=== PATIENT | male | born 1995 | race Caucasian/White ===

== ENCOUNTER 2016-12-14 03:30 | Emergency (ER) | payer OTHER ==
--- NOTE | 2016-12-14 03:36 | EDPHY ---
H & P HPI/ROS: HPI CHIEF COMPLAINT: Alcohol Intoxication , fall, head laceration HISTORY OF PRESENT ILLNESS: This patient 21-year-old male otherwise healthy no significant medical history presents emergency room with acute alcohol intoxication, and states that he fell recently. He presents with a rather large 7cm x 2cm left-sided forehead laceration. He denies headache. However he is highly intoxicated alcohol. Smells of alcohol. Unclear exactly how much she drank tonight. Patient does admit to drinking a lot of alcohol this evening. He denies any pain anywhere. It is noted he has abrasions on both of his palmar surfaces of his hands. Dirt on his pants. Abrasion on his left arm and a rather large head laceration. Patient reports tetanus shot is up-to-date. Past Medical History: No significant medical history Past Surgical History: Denies surgical history Social History: [employer] student, denies illicit drugs or daily tobacco use. Went drinking tonight. Family History: Noncontributory ROS REVIEW OF SYSTEMS: A comprehensive 10 point review of systems is otherwise negative aside from elements mentioned in the history of present illness. Exam Constitutional Intoxicated, triage nursing summary reviewed, vital signs reviewed, Sleepy, smells of alcohol Eyes normal conjunctivae and sclera, horizontal beating nystagmus consistent acute alcohol intoxication, otherwise pupils equal and react to light HENT head/neck: No midline cervical spine pain or step-offs, facial exam midface stable, no crepitus, over the left side of the forehead and left eyebrow region there is a rather large 7 cm gaping laceration, moist mucus membranes, no epistaxis, neck supple/ no meningismus, no raccoon eyes. Respiratory clear to auscultation bilaterally, normal breath sounds, no respiratory distress, no wheezing. Cardiovascular rate normal, regular rhythm, no murmur, no edema, distal pulses normal. Gastrointestinal soft, non-tender, no rebound, no guarding, normal bowel sounds, no distension, no pulsatile mass. Genitourinary no CVA tenderness. Musculoskeletal no midline vertebral tenderness, full range of motion, no calf swelling, no tenderness of extremities, no meningismus, good pulses, neurovascularly intact. Skin multiple abrasions to the palmar surface of both hands, abrasion left forearm. Neurologic sleepy, intoxicated with alcohol,, alert and oriented x 3, AAOx3, moves all 4 extremities equally, motor intact, sensory intact, CN II-XII intact , , normal vision, normal speech. Psychiatric normal mood/affect. Heme/Lymph/Immune no lymphadenopathy. Differential Diagnosis: Includes but is not limited to in a particular order acute alcohol intoxication, alcohol abuse, dehydration, electrolyte abnormality , nausea vomiting from acute alcohol intoxication current, closed head injury, intracranial bleed, skull fracture, facial trauma, facial laceration Medical Decision Making: Plan for this patient CT scan head and neck for trauma in the setting of acute alcohol intoxication and external trauma on exam. Will additionally repair facial laceration. Re-evaluation: breath alcohol 240. Laceration Repair Procedure: Verbal Consent was obtained, Under sterile conditions, The patient had lidocaine with epinephrine used approximately 6ccs to local anesthetize the left Lateral Forehead 7CM x 2CM complex Laceration. The wound was copiously irrigated with sterile fluid, the wound was explored for foreign bodies there were none visualized, the wound was explored with a sterile glove to the base. There are no deep structures involved, including no arterial injury. NINE 6.O PROLENE interrupted Sutures were placed in this patient's laceration. He had good close approximation of the wound edges. He Tolerated this well. Patient understands to keep the wound clean, protected and dry. Sutures out in [address] days[address] Watch for infection. CT report called to me by Dr. Villarreal. The CT scan of the head and neck are negative for acute trauma. 0433: Patient ambulates well. Discharged to the arc with police. He is on arc hold. Understands have sutures removed in 7 days. Source: Patient, Police, EMS Constitutional: Initial Vital Signs Temperature (C) 37 C 12/14/16 03:38 Heart Rate 92 12/14/16 03:38 Respiratory Rate 16 12/14/16 03:38 Blood Pressure 124/75 H 12/14/16 03:38 O2 Sat (%) 93 12/14/16 03:38 O2 Delivery Mode Room Air Allergies/Adverse Reactions: No Known Allergies Allergy (Unverified 12/14/16 03:38) Home Medications: Medication Instructions Recorded NK [No Known Home Meds] 12/14/16 Departure - Departure Disposition: Home, Routine, Self-Care Clinical Impression: Alcohol intoxication Qualifiers: Complication of substance-induced condition: uncomplicated Qualified Code(s): F10.920 - Alcohol use, unspecified with intoxication, uncomplicated Laceration of head Qualifiers: Encounter type: initial encounter Location of open wound of head: unspecified part of head Foreign body presence: without foreign body Qualified Code(s): S01.91XA - Laceration without foreign body of unspecified part of head, initial encounter Condition: Good Instructions: Care For Your Stitches (ED), Laceration (ED) Additional Instructions: 1. Your sutures need to be removed in 7 days. 2. Watch for infection. 3. Keep your wound clean, dry and protected. Referrals: Patient,NotPresent [Primary Care Provider] - As per Instructions
[2016-12-14 03:42] VITALS: RESP 16
[2016-12-14 04:21] VITALS: BP 126/72; PULSE 87; TEMP 98.7; O2SAT 94
== END 2016-12-14 04:34 | disposition home or self-care (01) ==
PROC: 0HQ1XZZ Repair Face Skin, External Approach (ICD-10-PCS; principal; 2016-12-14)
DX: S01.91XA Laceration without foreign body of unspecified part of head, initial encounter (principal); W18.39XA Other fall on same level, initial encounter; F10.920 Alcohol use, unspecified with intoxication, uncomplicated